=== PATIENT | male | born 1985 ===

== ENCOUNTER 2018-02-27 15:46 | Emergency (ER) | payer OTHER, SELFPAY ==
--- NOTE | 2018-02-27 17:26 | EDPHYS ---
Physician Documentation [facility] Name: Ángel Storey Age: 32 yrs Sex: Male : 1985 Arrival Date: 02/27/2018 Time: 15:51 Bed 30 Private MD: ED Physician Fox Murray HPI: 02/27 17:25 This 32 yrs old Unknown Male presents to ER via EMS with complaints of Nausea. pm1 17:25 The patient presents to the emergency department with nausea. Onset: The pm1 symptoms/episode began/occurred just prior to arrival. Patient arrived by EMS. Patient was wandering the aisle at [facility] and refuse to leave. 17:25 Possible causes: Fear of going to skilled nursing. Police officers were called and he elected to pm1 be brought here to the ER instead of being brought to skilled nursing. He has no complaints but told the EMS to put a complaint of nausea. Patient does not have nausea or any complaints. Patient without any pain. Historical: - Allergies: 16:15 No Known Allergies; hb - Home Meds: 16:15 None [Active]; hb - PMHx: 16:15 Depression; hb - PSHx: 16:15 None; hb - Immunization history:: Adult Immunizations up to date. - Social history:: Smoking status: Patient/guardian denies using tobacco. ROS: 17:25 Constitutional: Negative for fever, chills, and weight loss, Eyes: Negative for injury, pm1 pain, redness, and discharge, ENT: Negative for injury, pain, and discharge, Neck: Negative for injury, pain, and swelling, Cardiovascular: Negative for chest pain, palpitations, and edema, Respiratory: Negative for shortness of breath, cough, wheezing, and pleuritic chest pain, Abdomen/GI: Negative for abdominal pain, nausea, vomiting, diarrhea, and constipation, Back: Negative for injury and pain, : Negative for injury, bleeding, discharge, and swelling, MS/Extremity: Negative for injury and deformity, Skin: Negative for injury, rash, and discoloration, Neuro: Negative for headache, weakness, numbness, tingling, and seizure. Exam: 17:25 Head/Face: Normocephalic, atraumatic. Eyes: Pupils equal round and reactive to light, pm1 extra-ocular motions intact. Lids and lashes normal. Conjunctiva and sclera are non-icteric and not injected. Cornea within normal limits. Periorbital areas with no swelling, redness, or edema. ENT: Nares patent. No nasal discharge, no septal abnormalities noted. Tympanic membranes are normal and external auditory canals are clear. Oropharynx with no redness, swelling, or masses, exudates, or evidence of obstruction, uvula midline. Mucous membranes moist. Neck: Trachea midline, no thyromegaly or masses palpated, and no cervical lymphadenopathy. Supple, full range of motion without nuchal rigidity, or vertebral point tenderness. No Meningismus. Chest/axilla: Normal chest wall appearance and motion. Nontender with no deformity. No lesions are appreciated. Cardiovascular: Regular rate and rhythm with a normal S1 and S2. No gallops, murmurs, or rubs. Normal PMI, no JVD. No pulse deficits. Respiratory: Lungs have equal breath sounds bilaterally, clear to auscultation and percussion. No rales, rhonchi or wheezes noted. No increased work of breathing, no retractions or nasal flaring. Abdomen/GI: Soft, non-tender, with normal bowel sounds. No distension or tympany. No guarding or rebound. No evidence of tenderness throughout. 17:25 Back: No spinal tenderness. No costovertebral tenderness. Full range of motion. Skin: Warm, dry with normal turgor. Normal color with no rashes, no lesions, and no evidence of cellulitis. MS/ Extremity: Pulses equal, no cyanosis. Neurovascular intact. Full, normal range of motion. 17:25 Constitutional: The patient appears in no acute distress, alert, awake, comfortable, smells of urine, unkempt. 17:25 Neuro: Orientation: is normal, Mentation: is normal, Motor: is normal, moves all fours, strength is normal, strength is 5/5 in all extremities, Sensation: is normal, no obvious gross deficits, Gait: is steady, at a normal pace, without difficulty. Vital Signs: 16:14 BP 152 / 89; Pulse 87; Resp 16; Temp 98.2; Pulse Ox 100% on R/A; Weight 81.65 kg; hb Height 5 ft. 6 in. (167.64 cm); Pain 0/10; 16:14 Body Mass Index 29.05 (81.65 kg, 167.64 cm) hb MDM: 17:00 Patient medically screened. pm1 17:22 Data reviewed: vital signs. Data interpreted: Pulse oximetry: on room air is 100 %. pm1 Interpretation: normal. Counseling: I had a detailed discussion with the patient and/or guardian regarding: the historical points, exam findings, and any diagnostic results supporting the discharge/admit diagnosis, the need for outpatient follow up, to return to the emergency department if symptoms worsen or persist or if there are any questions or concerns that arise at home. Administered Medications: No medications were administered Disposition: 18:44 Co-signature as Attending Physician, Fox Murray MD. rn Disposition: 02/27/18 17:25 Discharged to Home. Impression: Encounter for general examination without complaint, suspected or reported diagnosis. - Condition is Stable. - Medication Reconciliation Form, Thank You Letter form. - Follow up: Emergency Department; When: As needed; Reason: Worsening of condition. Follow up: Private Physician; When: 2 - 3 days; Reason: Recheck today's complaints, Continuance of care, Re-evaluation by your physician. - Problem is new. - Symptoms have improved. Signatures: Fox Murray MD MD rn Kluge, Leah RN RN lk1 Ej Davis, HONG TELEPATHIST pm1 Manda Cueto RN RN hb
--- NOTE | 2018-02-27 17:26 | ER ---
Nurse's Notes [facility] Name: Ángel Storey Age: 32 yrs Sex: Male : 1985 Arrival Date: 02/27/2018 Time: 15:51 Bed 30 Private MD: Diagnosis: Encounter for general examination without complaint, suspected or reported diagnosis Presentation: 02/27 16:12 Presenting complaint: EMS states: [facility] called police because pt was wandering the [facility] aisles, refusing to leave. Upon arrival pt c/o of nausea, but pt then denies any c/o and said he was fine but just to put down whatever would get him a ride to the ER because he is homeless. Hx depression, HTN. BP 138/68, HR 81, R18, SpO2 99% on RA. Transition of care: patient was not received from another setting of care. Onset of symptoms was February 27, 2018. Care prior to arrival: None. 16:12 Method Of Arrival: EMS: [facility] hb 16:12 Acuity: CRISSY 4 hb Historical: - Allergies: 16:15 No Known Allergies; hb - Home Meds: 16:15 None [Active]; hb - PMHx: 16:15 Depression; hb - PSHx: 16:15 None; hb - Immunization history:: Adult Immunizations up to date. - Social history:: Smoking status: Patient/guardian denies using tobacco. Screenin:08 Abuse screen: Denies threats or abuse. Denies injuries from another. Nutritional lk1 screening: No deficits noted. Tuberculosis screening: No symptoms or risk factors identified. Fall Risk None identified. Assessment: 17:20 General: Appears in no apparent distress. Behavior is calm, cooperative, appropriate lk1 for age. Pain: Complains of pain in right foot and left foot Pain. Neuro: Level of Consciousness is awake, alert, obeys commands, Oriented to person, place, time, situation. Cardiovascular: Heart tones S1 S2 present Capillary refill is brisk Patient's skin is warm and dry. Respiratory: Airway is patent Respiratory effort is even, unlabored, Respiratory pattern is regular, symmetrical, Breath sounds are clear bilaterally. GI: Abdomen is non-distended, Reports nausea. : No signs and/or symptoms were reported regarding the genitourinary system. EENT: No signs and/or symptoms were reported regarding the EENT system. Derm: No signs and/or symptoms reported regarding the dermatologic system. Musculoskeletal: No signs and/or symptoms reported regarding the musculoskeletal system. 17:45 Reassessment: Patient seen urinating in trash can. Asked patient to use the restroom. lk1 17:46 Reassessment: Patient given socks and a meal to eat. lk1 Vital Signs: 16:14 BP 152 / 89; Pulse 87; Resp 16; Temp 98.2; Pulse Ox 100% on R/A; Weight 81.65 kg; hb Height 5 ft. 6 in. (167.64 cm); Pain 0/10; 16:14 Body Mass Index 29.05 (81.65 kg, 167.64 cm) hb ED Course: 15:51 Patient arrived in ED. as 16:14 Triage completed. hb 16:14 Arm band placed on right wrist. hb 16:46 Michelle Murphy, URMILA is Primary Nurse. lk1 16:59 Ej Davis NP is PHCP. pm1 16:59 Fox Murray MD is Attending Physician. pm1 18:10 Patient has correct armband on for positive identification. Bed in low position. Call lk1 light in reach. 18:21 No provider procedures requiring assistance completed. Patient did not have IV access lk1 during this emergency room visit. Administered Medications: No medications were administered Outcome: 17:25 Discharge ordered by MD. pm1 18:20 Discharged to home ambulatory. lk1 18:20 Condition: good 18:20 Discharge instructions given to patient, Instructed on discharge instructions, follow up and referral plans. safety practices, Demonstrated understanding of instructions, follow-up care. 18:22 Patient left the ED. lk1 Signatures: Julia Wilson as Michelle Murphy, URMILA RN lk1 Ej Davis NP [employer] SUPERVISOR pm1 Manda Cueto RN RN Corrections: (The following items were deleted from the chart) 16:16 16:12 Presenting complaint: EMS states: [facility] called police because pt was hb wandering the aisles, refusing to leave. Upon arrival pt c/o of nausea, but pt the retracted and said he was fine but just to put down whatever would get him a ride to the ER because he is homeless. Hx depression, HTN. hb 16:18 16:12 Presenting complaint: EMS states: [facility] called police because pt was hb wandering the aisles, refusing to leave. Upon arrival pt c/o of nausea, but pt the retracted and said he was fine but just to put down whatever would get him a ride to the ER because he is homeless. Hx depression, HTN. BP 138/68, HR 81, R18, SpO2 99% on RA hb
== END 2018-02-27 18:22 | disposition home or self-care (01) ==
LOC: ER 15:46
DX: Z00.00 Encounter for general adult medical examination without abnormal findings (principal)
CPT/HCPCS: 99283